=== PATIENT | male | born 1995 | race Caucasian/White ===

== ENCOUNTER 2017-11-30 21:49 | Inpatient (IN) | payer BC ==
[2017-12-01] MEDS ORDERED: ONDANSETRON 4 MG/2 ML VIAL IVP PRN (01:43)
[2017-12-01] MEDS ORDERED: MORPHINE SULFATE 4 MG/ML SYRINGE IVP PRN (01:44)
[2017-12-01] MEDS: SODIUM CHLORIDE 0.9% 1,000 ML IV SCH ×3 (02:50→22:48)
[2017-12-01 08:18] LABS: Basophils % (A) 0 %; Eosinophils # (A) 0.1 k/uL (0-0.7); Eosinophils % (A) 1 %; HCT 35.6 % (39.0-53.0); HGB 12.3 gm/dL (13.0-17.5); Lymphocytes # (A) 1.9 k/uL (1.0-4.8); Lymphocytes % (A) 24 %; MCHC 34.7 g/dL (31.0-37.0); MCV 80.8 fL (80.0-100.0); Mean Platelet Volume 7.2; Monocytes # (A) 0.5 k/uL (0-1.0); Monocytes % (A) 7 %; Neutrophils # (A) 5.3 k/uL (1.3-7.7); Neutrophils % (A) 66 %; Platelet Count 203 k/uL (150-450); RBC 4.41 m/uL (4.30-5.90); RDW 13.4 % (11.5-15.5)
[2017-12-01] MEDS: PANTOPRAZOLE 40 MG/10 ML VIAL IVP SCH ×2 (08:18→21:20)
[2017-12-01 08:24] LABS: Anion Gap 12 mmol/L; Blood Urea Nitrogen 20 mg/dL (9-20); Calcium 8.9 mg/dL (8.4-10.2); Carbon Dioxide 23 mmol/L (22-30); Chloride 108 mmol/L (98-107); Glucose 82 mg/dL (74-99); Potassium 4.2 mmol/L (3.5-5.1); Sodium 143 mmol/L (137-145)
--- NOTE | 2017-12-01 15:39 | P.CONS ---
History of Present Illness - Reason for Consult Consult date: 12/01/17 GI bleeding - History of Present Illness The patient is a 22-year-old male who was admitted last night and transferred from [facility] because of GI bleeding. The patient reported having had liquidy dark/bloody bowel movements the night before and that continued the morning of admission while was at work and he also had coffee- ground emesis. He went to the emergency room in the evening. His hemoglobin was around 14.5 prior to transfer. His hemoglobin was around 12.3 at this facility. We are asked to see him for further workup of GI bleeding. The patient denies any history of peptic ulcer disease or any use of NSAIDs or alcohol. He denied any prior GI complaints. No history of reflux, dysphagia, odynophagia or other symptoms. Review of Systems Constitutional: Denies fever, chills, sweats, weight gain, or loss. Increased fatigue weakness. HEENT: No headaches, blurred vision or loss, earaches, drainage, tinnitus, oral mucosal lesions, dysphagia, or odynophagia. CARDIAC: Negative for chest pain, arrhythmias, or palpitation. RESPIRATORY: Negative for shortness of breath, hemoptysis, cough, or sputum production. GI: See HPI for pertinent findings. : Negative for hematuria, urgency, frequency, polyuria, or dysuria. MUSCULOSKELETAL: Negative for muscle aches, swelling, arthritis, and arthralgias. NEUROLOGIC: Negative for stroke or TIA. ENDOCRINE: Negative for thyroid problems. SKIN: Negative for rash or itching. PSYCHIATRIC: History of depression on Celexa. Past Medical History History of Any Multi-Drug Resistant Organisms: None Reported Past Surgical History: No Surgical Hx Reported Past Anesthesia/Blood Transfusion Reactions: No Reported Reaction Past Psychological History: Depression Smoking Status: Never smoker Past Alcohol Use History: Rare Past Drug Use History: None Reported - Past Family History Mother Family Medical History: Hypertension Additional Family Medical History / Comment(s): bipolar Medications and Allergies Home Medications Medication Instructions Recorded Confirmed Type Citalopram Hydrobromide [CeleXA] 20 mg PO DAILY@1145 12/01/17 12/01/17 History Allergies Allergy/AdvReac Type Severity Reaction Status Date / Time No Known Allergies Allergy Verified 12/01/17 12:16 Physical Exam Vitals: Vital Signs Temp Pulse Resp BP Pulse Ox 12/01/17 06:01 97.4 F L 68 14 103/59 97 11/30/17 23:45 98.4 F 80 16 133/80 97 Intake and Output 12/01/17 12/01/17 12/01/17 06:59 14:59 22:59 Intake Total 1000 Balance 1000 Intake: Intake, IV Titration 1000 Amount Sodium Chloride 0.9% 1, 1000 000 ml @ 125 mls/hr IV . Q8H OSBALDO Rx#:[id number] Other: # Voids 1 # Bowel Movements 0 Weight 109 kg General appearance: The patient is alert, oriented, in no acute distress. HET: Head is normocephalic and atraumatic. Pupils are equal and reactive. Oropharynx is clear without lesions. Neck: Supple without lymphadenopathy. Trachea midline. Heart: S1 S2. Regular rate and rhythm. Lungs: No crackles or wheezes are heard. Abdomen: Soft, nontender, nondistended with bowel sounds. No peritoneal signs. No palpable organomegaly or masses. Extremities: Normal skin color and turgor. No cyanosis, rash, ulceration, clubbing, or edema. Radial and pedal pulses are 2/4 bilaterally. Neurological: No focal deficits. Strength and sensation are grossly intact. Results CBC & Chem 7: 12/01/17 07:31 12/01/17 07:31 Labs: Abnormal Lab Results - Last 24 Hours (Table) 12/01/17 12/01/17 Range/Units 07:31 07:31 Hgb 12.3 L (13.0-17.5) gm/dL Hct 35.6 L (39.0-53.0) % Chloride 108 H (98-107) mmol/L Assessment and Plan Assessment: GI bleeding and anemia, rule out peptic ulcer disease. Plan: Will proceed with EGD today. Further plans based on his findings.
[2017-12-01] MEDS ORDERED: IV FLUID CONTINUATION 1,000 ML IV ONE (15:50)
[2017-12-01] MEDS ORDERED: LIDOCAINE 1% INJ 10MG/ML (20 ML MDV) ONE (15:51)
[2017-12-01] MEDS ORDERED: PROPOFOL 10 MG/ML 20 ML VIAL IV ONE (15:51)
[2017-12-01 15:53] VITALS: RESP 16
[2017-12-01] MEDS ORDERED: SODIUM CHLORIDE 0.9% 1,000 ML IV ONE (15:56)
--- NOTE | 2017-12-01 16:16 | P.PCN ---
Date of Procedure: 12/01/17 Procedure(s) Performed: Procedure: Esophagogastroduodenoscopy and biopsy. Preoperative diagnosis: GI bleeding. Postoperative diagnosis: 1. Duodenitis and duodenal bulb ulcers not actively bleeding at the time of this exam. 2. Biopsies obtained from the antrum to rule out H. pylori infection. Preparation and sedation: Was provided by anesthesia. Brief clinical history: The patient is a 22-year-old male who was admitted last night in transfer from [facility] because of GI bleeding. The patient reported having had liquidy dark/bloody bowel movements the night before and that continued the morning of admission while he was at work and he also had coffee-ground emesis. He went to the emergency room in the evening. His hemoglobin was around 14.5 prior to transfer. His hemoglobin was around 12.3 at this facility. We were asked to see him for further workup of GI bleeding. The patient denies any history of peptic ulcer disease or any use of NSAIDs or alcohol. He denied any prior GI complaints. No history of reflux, dysphagia, odynophagia or other symptoms. Procedure: With the patient on his left lateral decubitus position and after informed consent and adequate sedation, I passed the Olympus-GIF 160 video upper endoscope through the cricopharyngeus down the esophagus. GE junction was around 41 cm from the incisors and there was no definite hiatal hernia. The endoscope was then passed into the stomach which was insufflated with air and inspected in detail including the retroflex view in the cardia. There was minimal mottling and erythema in the antrum but no ulcers, erosions or bleeding. Pyloric channel did not show any ulcers. Duodenal bulb showed intense erythema and edema and there were couple ulcerations measuring between 1 and 2 cm and there was a linear erosion but there was no evidence of bleeding or any dark protuberances, clots or oozing of blood. No obstruction to passing the endoscope into the post bulbar area and descending duodenum. All secretions were clear in color. I obtained biopsies from the antrum then the endoscope was withdrawn. The patient tolerated the procedure well. Plan: The patient was reassured. Will continue PPI. Clear liquids today and his diet can be advanced as tolerated to full fluids then to bland/soft diet while we await the biopsy results. Will continue to follow with you with interest.
--- NOTE | 2017-12-01 22:16 | HP ---
HISTORY AND PHYSICAL CHIEF COMPLAINT: GI bleed. HISTORY OF PRESENT ILLNESS: This 22-year-old gentleman with a past history of depression being followed by Dr. Puri in the outpatient setting, presented to [facility] with a GI bleed. The patient had melenic stools for a couple days. The patient also had coffee- ground emesis. Hemoglobin is 14.5, but currently the hemoglobin is found to be at 12.3 and the patient was directly transferred to [facility] for further evaluation and treatment. Dr. Pizarro saw the patient and performed the EGD which showed duodenitis. Duodenal bulb ulcer is not actively bleeding with biopsies obtained. Patient is being closely monitored at this time. There is no history of any fever, rigors. No history of headache, loss of consciousness, seizures. PAST MEDICAL HISTORY: Depression. MEDICATIONS PRIOR TO ADMISSION: Include Celexa 20 mg p.o. daily. ALLERGIES: None. FAMILY HISTORY: History of hypertension, bipolar in the family. SOCIAL HISTORY: Occasional alcohol. No history of smoking. REVIEW OF SYSTEMS: ENT: No diminished hearing, diminished vision. CARDIOVASCULAR: No angina, palpitations. RESPIRATORY: No cough or hemoptysis. GI: As mentioned earlier. : No dysuria. NERVOUS: No numbness or weakness. ALLERGY/IMMUNOLOGY: No asthma or hay fever. MUSCULOSKELETAL: As mentioned earlier. HEMATOLOGY/ONCOLOGY: No history of anemia. ENDOCRINE: No history of diabetes, hypothyroidism. CONSTITUTIONAL: As mentioned earlier. DERMATOLOGY: Negative. RHEUMATOLOGY: Negative. PSYCHIATRY: As mentioned earlier. PHYSICAL EXAM: Alert, oriented x3. Pulse 68, blood pressure 103/59, respirations 14, temperature 97.4, pulse ox 97% room air. HEENT: Conjunctivae pale. Oral mucosa moist. NECK: No jugular venous distention. No carotid bruits. No lymph node enlargement. CARDIOVASCULAR: S1, S2 muffled. RESPIRATORY: Breath sounds diminished in the bases. No rhonchi. No crackles. ABDOMEN: Soft, obese, nontender. No mass palpable. LEGS: No edema. No swelling. NERVOUS SYSTEM: Higher functions as mentioned earlier. Moves all 4 limbs. No focal motor or sensory deficits. LYMPHATIC: No lymphadenopathy in neck or axillae. SKIN: No ulcer, rash or bleeding. LABS: WBC 8, hemoglobin is 12.3. Sodium 143, potassium 4.2. ASSESSMENT: 1. Acute upper gastrointestinal bleed and acute blood loss anemia, status post esophagogastroduodenoscopy showing duodenal ulcers. 2. Depression. 3. Acute blood loss anemia. 4. Obesity with a body mass index 34.5. RECOMMENDATIONS AND DISCUSSION: Recommend to continue current medical management, continue with monitoring and symptomatic treatment. Otherwise at this time, I recommend continuing with proton pump inhibitors and avoid NSAIDs. I would recommend continuing the current medications. Prognosis guarded. Further recommendations to follow. MMODL / IJN: [id number] /
[2017-12-02] MEDS: SODIUM CHLORIDE 0.9% 1,000 ML IV SCH ×2 (03:18→08:53)
[2017-12-02 06:03] VITALS: BP 114/76; PULSE 74; TEMP 97.3
[2017-12-02] MEDS: PANTOPRAZOLE 40 MG/10 ML VIAL IVP SCH (07:46)
[2017-12-02 11:24] LABS: Basophils % (A) 0 %; Eosinophils # (A) 0.1 k/uL (0-0.7); Eosinophils % (A) 2 %; Lymphocytes # (A) 1.3 k/uL (1.0-4.8); Lymphocytes % (A) 21 %; MCH 28.1 pg (25.0-35.0); MCHC 34.3 g/dL (31.0-37.0); MCV 81.7 fL (80.0-100.0); Mean Platelet Volume 7.1; Monocytes # (A) 0.5 k/uL (0-1.0); Monocytes % (A) 8 %; Neutrophils # (A) 4.2 k/uL (1.3-7.7); Neutrophils % (A) 67 %; Platelet Count 182 k/uL (150-450); RBC 3.92 m/uL (4.30-5.90); RDW 13.2 % (11.5-15.5); WBC 6.3 k/uL (3.8-10.6)
[2017-12-02 11:37] LABS: Anion Gap 11 mmol/L; Blood Urea Nitrogen 10 mg/dL (9-20); Calcium 8.8 mg/dL (8.4-10.2); Carbon Dioxide 24 mmol/L (22-30); Chloride 108 mmol/L (98-107); Glucose 95 mg/dL (74-99); Potassium 3.9 mmol/L (3.5-5.1); Sodium 143 mmol/L (137-145)
[2017-12-02] MEDS ORDERED: CITALOPRAM HYDROBROMIDE 20 MG TAB PO SCH (11:45)
--- NOTE | 2017-12-03 05:53 | DS ---
DISCHARGE SUMMARY DATE OF SERVICE: 12/02/2017. FINAL DIAGNOSES: 1. Acute upper gastrointestinal bleed with acute blood loss anemia status post EGD showing duodenal ulcers. 2. Depression. 3. Acute blood loss anemia. 4. Obesity with body mass of 34.5. DISCHARGE DISPOSITION: The patient is being discharged in stable condition with guarded prognosis. HISTORY OF PRESENT ILLNESS: This 22-year-old gentleman with past medical history of multiple medical problems was admitted with acute upper gastrointestinal bleeding. Patient had duodenal ulcers in the EGD. Dr. Pizarro performed the EGD. The hemoglobin is stable at 11. Treated symptomatically. Improved significantly. On exam, vital signs stable. Cardiovascular: S1, S2. Abdomen soft. Central nervous system: No focal deficits. DISCHARGE ADVICE AND MEDICATIONS: 1. Diet is cardiac soft bland diet. No coffee. No tea. No pop. No milk. 2. Activity limited until followup. 3. Follow up with Dr. Pizarro in 1 week. 4. Follow up with Dr. Puri in 1 week. 5. CBC and BMP. MEDICATIONS: 1. Celexa 20 mg p.o. daily. 2. Protonix 40 mg p.o. b.i.d. 3. Carafate 1 g p.o. q.a.c. Once again the patient is being discharged in stable condition with guarded prognosis. MMODL / IJN: [id number] /
== END 2017-12-02 15:09 | disposition home or self-care (01) | DRG 378 ==
LOC: 4MS4W 23:20
PROVIDERS: ADMIT Hospitalist; ATTEND Hospitalist
PROC: 0DB78ZX Excision of Stomach, Pylorus, Via Natural or Artificial Opening Endoscopic, Diagnostic (ICD-10-PCS; principal; 2017-12-01 15:30)
DX: K26.4 Chronic or unspecified duodenal ulcer with hemorrhage (principal); D62 Acute posthemorrhagic anemia; E66.9 Obesity, unspecified; F32.9 Major depressive disorder, single episode, unspecified; K29.80 Duodenitis without bleeding; Z68.34 Body mass index [BMI] 34.0-34.9, adult; Z79.899 Other long term (current) drug therapy; Z82.49 Family history of ischemic heart disease and other diseases of the circulatory system; K29.60 Other gastritis without bleeding; B96.81 Helicobacter pylori [H. pylori] as the cause of diseases classified elsewhere
CPT/HCPCS: 43239; 80048; 85025; 88305

== ENCOUNTER 2024-10-05 16:39 | Emergency (ER) | payer SELFPAY ==
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
[2024-10-05 17:59] LABS: Appearance,Urine Clear (Clear); Bilirubin,Urine Negative (Negative); Blood,Urine Negative (Negative); Color,Urine Colorless; Glucose,Urine (UA) Negative (Negative); Ketones,Urine Negative (Negative); Leukocyte Esterase,Urine Negative (Negative); Nitrite,Urine Negative (Negative); Protein,Urine Negative (Negative); Specific Gravity,Urine 1.012 (1.001-1.035); Urobilinogen,Urine <2.0 mg/dL (<2.0)
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
[2024-10-05 18:43] VITALS: BP 132/83; PULSE 66; RESP 20; TEMP 98.6
== END 2024-10-05 18:43 | disposition home or self-care (01) ==
LOC: EC 16:39
DX: M79.642 Pain in left hand (principal); V49.40XA Driver injured in collision with unspecified motor vehicles in traffic accident, initial encounter; Y92.410 Unspecified street and highway as the place of occurrence of the external cause
CPT/HCPCS: 71046; 81003; 99284